=== PATIENT | female | born 1980 | race Caucasian/White ===

== ENCOUNTER 2016-03-23 10:02 | Emergency (ER) | payer OTHER ==
[~2016-03-23] VITALS: Ht 165.1 cm; Wt 97.1 kg
[~2016-03-23 10:02] MED LIST: AMOXICILLIN 50500 MG PO; AMOXICILLIN/CLA1 TA1 PO; ATIVAN; BUSPAR DIVIDOSE30 MG PO; CEFTIN250 M1 PO; CEFTIN500 MG PO; CEPHALEXIN250 M1 PO; CEPHALEXIN500 M1 PO; DEPAKENE; DOXYCYCLINE 10100 MG PO; FLEXERIL 1010 MG/TAB PO; FLUOXETINE; LAMICTAL 25MG T25 MG PO; LITHIUM 30300 MG/CAP PO; LORTAB 5/500 501 TAB PO; MACROBID 1100 MG/CAP PO; METRONIDAZOLE500 MG PO; MIDRIN CAPSULE1 CAP PO; NAPROSYN500 MG PO; NO HOME MEDICATIONS; NO MEDS; NORCO 325 MG-7.1 TAB PO; PERCOCET 325 MG1 TA2 PO; PERCOCET 5/321 UDTAB PO; PHENERGAN 25 TA25 MG PO; PHENERGAN25 MG RC; PROPRANOLOL10 MG PO; ZOLOFT 100MG100 MG PO; ZOLOFT PO; ZOLOFT25 MG PO; ZYPREXA20 MG PO
[2016-03-23 10:14] VITALS: TEMP 99.1
[2016-03-23 11:01] LABS: BASO % 0.2 % (0.0-2.0); EOS % 0.1 % (0-4.0); GRAN # 14.5 (1.4-6.5); GRAN % 84.6 % (42.2-75.2); HEMATOCRIT 38.8 % (37.0-47.0); HEMOGLOBIN 13.1 g/dl (12.5-16.0); LYMPH # 1.6 (1.2-3.4); LYMPH % 9.3 % (20.0-51.0); MEAN CELL VOLUME 91 fl (80.0-100.0); MEAN CORPUSCULAR HEMOGLOBIN 31 pg (27.0-31.0); MEAN CORPUSCULAR HGB CONC 34 g/dl (33.0-37.0); MEAN PLATELET VOLUME 9.3 fl (7.4-10.4); MONO # 0.9 (0.1-0.6); MONO % 5.4 % (1.7-9.3); PLATELET COUNT 326 K/mm3 (130-400); RED BLOOD COUNT 4.28 M/mm3 (4.10-5.30); REDCELL DISTRIBUTION WIDTH-CV 13.1 % (11.5-14.5); WHITE BLOOD COUNT 17.1 K/mm3 (4.8-10.8)
[2016-03-23 11:16] LABS: ADJUSTED CALCIUM 9.2 mg/dL (8.4-10.2); ALANINE AMINOTRANSFERASE 30 U/L (9-52); ALBUMIN 4.5 gm/dL (3.5-5.0); ALKALINE PHOSPHATASE 70 U/L (50-136); ANION GAP 11 mmol/L (7-16); BILIRUBIN,TOTAL 0.9 mg/dL (0.0-1.0); BLOOD UREA NITROGEN 19 mg/dL (7-17); CALCIUM 9.6 mg/dL (8.4-10.2); CARBON DIOXIDE 24 mmol/L (22-30); CHLORIDE 106 mmol/L (98-107); CREATININE, serum 0.82 mg/dL (0.52-1.25); GLUCOSE 87 mg/dL (74-106); POTASSIUM 3.9 mmol/L (3.4-5.0); SODIUM 142 mmol/L (137-145); TOTAL PROTEIN 7.9 gm/dL (6.4-8.2)
[2016-03-23 11:17] LABS: ACETAMINOPHEN < 10 ug/mL (10-30); SALICYLATE < 1.0 mg/dL
[2016-03-23 11:28] LABS: AMPHETAMINE URINE POSITIVE; BARBITURATES URINE NEGATIVE; BENZODIAZEPINES URINE NEGATIVE; BUPRENORPHINE URINE NEGATIVE; METHADONE URINE NEGATIVE; OPIATES URINE NEGATIVE; OXYCODONE URINE NEGATIVE; PHENCYCLIDINE URINE NEGATIVE; PROPOXYPHENE URINE NEGATIVE; THC CANNABINOIDS URINE POSITIVE
[2016-03-23 13:48] LABS: PH 5 (5-8); SQUAMOUS EPITHELIAL 20-50 /hpf; URINE APPEARANCE Turbid; URINE BACTERIA Moderate /hpf; URINE BILIRUBIN Negative (NEGATIVE); URINE BLOOD Negative (NEGATIVE); URINE COLOR Amber; URINE GLUCOSE Negative (NEGATIVE); URINE KETONE 1+ (NEGATIVE); URINE UROBILINOGEN Negative (NEGATIVE)
[2016-03-24 00:51] VITALS: BP 104/71; PULSE 94
== END 2016-03-24 00:51 | disposition home or self-care (01) ==
LOC: COL.ER 10:02
PROVIDERS: Family Medicine
DX: F15.10 Other stimulant abuse, uncomplicated (principal); F29 Unspecified psychosis not due to a substance or known physiological condition; R45.851 Suicidal ideations
CPT/HCPCS: J7030

== ENCOUNTER 2016-06-03 18:27 | Emergency (ER) | payer OTHER ==
[~2016-06-03] VITALS: Ht 165.1 cm; Wt 100.0 kg
[2016-06-03 18:40] VITALS: TEMP 97.1
[2016-06-03] MEDS ORDERED: DESYREL 100MG100 MG PO (18:44)
[2016-06-03 22:02] VITALS: BP 130/78; PULSE 84
== END 2016-06-03 22:04 | disposition home or self-care (01) ==
LOC: COL.ER 18:27
DX: J06.9 Acute upper respiratory infection, unspecified (principal); F17.210 Nicotine dependence, cigarettes, uncomplicated; I10 Essential (primary) hypertension
CPT/HCPCS: J8540

== ENCOUNTER 2016-06-17 19:26 | Emergency (ER) | payer OTHER ==
[~2016-06-17] VITALS: Ht 165.1 cm; Wt 102.3 kg
[~2016-06-17 19:26] MED LIST changes: +DESYREL 100MG100 MG PO
[2016-06-17 19:30] VITALS: BP 136/60; TEMP 98.3
[2016-06-17 20:42] VITALS: PULSE 88
== END 2016-06-17 20:43 | disposition home or self-care (01) ==
LOC: COL.ER 19:26
DX: M79.671 Pain in right foot (principal)

== ENCOUNTER 2016-08-01 12:20 | Emergency (ER) | payer OTHER ==
[~2016-08-01] VITALS: Ht 165.1 cm; Wt 102.3 kg
[2016-08-01 12:42] VITALS: BP 141/75; PULSE 89; TEMP 98.6
[2016-08-01] MEDS ORDERED: RISPERDAL2 MG PO (12:44)
[2016-08-01] MEDS ORDERED: ELIMITE TOP (13:31)
== END 2016-08-01 13:59 | disposition home or self-care (01) ==
LOC: COL.ER 12:20
DX: B86 Scabies (principal)

== ENCOUNTER 2016-08-11 10:04 | Observation (INO) | payer OTHER ==
[~2016-08-11] VITALS: Ht 165.1 cm; Wt 101.6 kg
[~2016-08-11 10:04] MED LIST changes: +ELIMITE TOP; +RISPERDAL2 MG PO
[2016-08-11 11:01] LABS: BASO # 0.1 (0.0-0.2); BASO % 0.4 % (0.0-2.0); EOS # 0.1 (0.0-0.7); EOS % 0.8 % (0-4.0); GRAN # 9.3 (1.4-6.5); GRAN % 77.6 % (42.2-75.2); HEMATOCRIT 44.7 % (37.0-47.0); LYMPH # 1.7 (1.2-3.4); LYMPH % 14.3 % (20.0-51.0); MEAN CELL VOLUME 93 fl (80.0-100.0); MEAN CORPUSCULAR HEMOGLOBIN 31 pg (27.0-31.0); MEAN CORPUSCULAR HGB CONC 34 g/dl (33.0-37.0); MEAN PLATELET VOLUME 9.7 fl (7.4-10.4); MONO # 0.8 (0.1-0.6); MONO % 6.5 % (1.7-9.3); PLATELET COUNT 322 K/mm3 (130-400); RED BLOOD COUNT 4.79 M/mm3 (4.10-5.30); REDCELL DISTRIBUTION WIDTH-CV 13.2 % (11.5-14.5)
[2016-08-11 11:08] LABS: PH 5 (5-8); SQUAMOUS EPITHELIAL 20-50 /hpf; URINE APPEARANCE Cloudy; URINE BACTERIA Rare /hpf; URINE BILIRUBIN Negative (NEGATIVE); URINE BLOOD Negative (NEGATIVE); URINE COLOR Amber; URINE GLUCOSE Negative (NEGATIVE); URINE KETONE Negative (NEGATIVE); URINE UROBILINOGEN Negative (NEGATIVE); URINE WBC 20-50 /hpf
[2016-08-11 11:23] LABS: AMPHETAMINE URINE POSITIVE; BARBITURATES URINE NEGATIVE; BENZODIAZEPINES URINE NEGATIVE; BUPRENORPHINE URINE NEGATIVE; METHADONE URINE NEGATIVE; OPIATES URINE POSITIVE; OXYCODONE URINE NEGATIVE; PHENCYCLIDINE URINE NEGATIVE; PROPOXYPHENE URINE NEGATIVE; THC CANNABINOIDS URINE POSITIVE
[2016-08-11 11:51] LABS: ADJUSTED CALCIUM 8.6 mg/dL (8.4-10.2); ALANINE AMINOTRANSFERASE 32 U/L (9-52); ALBUMIN 4.5 gm/dL (3.5-5.0); ALKALINE PHOSPHATASE 77 U/L (50-136); ANION GAP 12 mmol/L (7-16); BLOOD UREA NITROGEN 18 mg/dL (7-17); CARBON DIOXIDE 23 mmol/L (22-30); CHLORIDE 104 mmol/L (98-107); CREATININE, serum 0.79 mg/dL (0.52-1.25); GLUCOSE 95 mg/dL (74-106); POTASSIUM 3.5 mmol/L (3.4-5.0); SODIUM 139 mmol/L (137-145); TOTAL PROTEIN 7.7 gm/dL (6.4-8.2)
[2016-08-11 11:56] LABS: ACETAMINOPHEN < 10 ug/mL (10-30); SALICYLATE < 1.0 mg/dL
[2016-08-11] MEDS ORDERED: INDERAL 10MG10 MG PO (22:39)
[2016-08-11 23:32] VITALS: BP 148/89; PULSE 96; TEMP 98.6
[2016-08-12] VITALS: BP 148/89; PULSE 88; TEMP 98.2
[2016-08-12 04:00] VITALS: PULSE 72; TEMP 98.6
[2016-08-12 08:36] VITALS: BP 122/75; PULSE 76; TEMP 97.8
[2016-08-12 21:00] VITALS: BP 105/57; PULSE 74; TEMP 98
[2016-08-13 09:45] VITALS: BP 134/85; PULSE 94; TEMP 97.6
== END 2016-08-13 14:30 ==
LOC: COL.ER 10:04 → ICU 20:43
PROVIDERS: Emergency Medicine
DX: T43.622A Poisoning by amphetamines, intentional self-harm, initial encounter (principal); T40.7X2A Poisoning by cannabis (derivatives), intentional self-harm, initial encounter; T40.602A Poisoning by unspecified narcotics, intentional self-harm, initial encounter; F43.10 Post-traumatic stress disorder, unspecified; N39.0 Urinary tract infection, site not specified; I10 Essential (primary) hypertension; S81.812A Laceration without foreign body, left lower leg, initial encounter; S81.811A Laceration without foreign body, right lower leg, initial encounter; S41.112A Laceration without foreign body of left upper arm, initial encounter; S41.111A Laceration without foreign body of right upper arm, initial encounter
CPT/HCPCS: 90791-AI; G0378; J0696; J1200; J7030

== ENCOUNTER 2016-08-13 16:16 | Observation (INO) | payer OTHER ==
[~2016-08-13] VITALS: Ht 165.1 cm; Wt 101.6 kg
[~2016-08-13 16:16] MED LIST changes: +INDERAL 10MG10 MG PO
[2016-08-13 16:54] VITALS: BP 113/65; PULSE 75; TEMP 97
[2016-08-13 20:11] VITALS: O2SAT 94
[2016-08-13 20:15] VITALS: BP 122/54; PULSE 78; TEMP 97
[2016-08-13 20:16] VITALS: O2SAT 99
[2016-08-14 08:00] VITALS: BP 137/84; PULSE 79; TEMP 98
== END 2016-08-14 16:00 ==
LOC: ICU 16:16
DX: F31.9 Bipolar disorder, unspecified (principal); F43.10 Post-traumatic stress disorder, unspecified; T43.622A Poisoning by amphetamines, intentional self-harm, initial encounter; T40.602A Poisoning by unspecified narcotics, intentional self-harm, initial encounter; T40.7X2A Poisoning by cannabis (derivatives), intentional self-harm, initial encounter; N39.0 Urinary tract infection, site not specified
CPT/HCPCS: G0378; G0379